=== PATIENT | female | born 1970 | race Caucasian/White ===

== ENCOUNTER → 2018-09-16 08:44 | Emergency (ER) | payer BC ==
[~2018-09-16 08:44] MED LIST: NS 0.9% 1000 ML* 1,000 ML IV ONE
--- NOTE | 2018-09-16 09:31 | ED ---
Back Pain - HPI Summary HPI Summary: A 48 y/o female accompanied by a friend presents to ED c/o severe back pain. Currently, the patient is still experiencing back pain reaching 3/10 in severity. As per triage, "history of breast CA, relapsed. now here with severe lower back pain. states she can feel a small lump in back. denies trauma/injury/ heavy lifting". According to the patient, she has been experiencing "pretty severe" back pain since yesterday. She noted that her back pain feels like a similar back pain when she lifts something heavy, but the pain has been getting worse to the point where it is difficult to stand and sit up. She noted that she is worried that her breast cancer is involving her spine. She was diagnosed with a relapse last week. Additionally, she stated that she constantly palpates herself and did not feel a lump or mass, but felt one today as she was massaging her back earlier. She was diagnosed with breast cancer in June 2017. She went through a mastectomy and chemotherapy. She received the results of a biopsy last and found out on Tuesday night that she relapsed. She is currently not under any therapy. She has a PET CT on Tuesday scheduled and just had a brain MRI. Patient would like ED MD to call Dr. Rankin. 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 - History of Current Complaint Chief Complaint: EDBackInjuryPain Stated Complaint: BACK PAIN Time Seen by Provider: 09/16/18 08:55 Hx Obtained From: Patient Onset/Duration: Sudden Onset, Lasting Days, Still Present, Worse Since Onset/Duration: Started Days Ago Timing: Constant Severity Initially: Moderate Severity Currently: Moderate Pain Intensity: 3 Pain Scale Used: 0-10 Numeric Character: Aching Alleviating Symptom(s): Nothing Associated Signs And Symptoms: Positive: Negative - Allergies/Home Medications Allergies/Adverse Reactions: Allergies Allergy/AdvReac Type Severity Reaction Status Date / Time No Known Allergies Allergy Verified 09/16/18 08:50 Home Medications: Home Medications Alendronate Sodium 70 mg PO WEEKLY 09/16/18 [History Confirmed 09/16/18] Anastrozole (NF) [Arimidex (NF)] 1 mg PO DAILY 09/16/18 [History Confirmed 09/16] Calcium Carbonate [Calcium] 500 mg PO DAILY 09/16/18 [History Confirmed 09/16/18 ] Cholecalciferol (Vitamin D3) [Vitamin D-3] 2,000 unit PO DAILY 09/16/18 [ History Confirmed 09/16/18] Fluticasone NASAL SPRAY 50MCG* [Flonase NASAL SPRAY 50MCG*] 2 spray BOTH NARES DAILY 09/16/18 [History Confirmed 09/16/18] Multivitamins/Minerals TAB* [Theragran/minerals TAB*] 1 tab PO DAILY 09/16/18 [ History Confirmed 09/16/18] PMH/Surg Hx/FS Hx/Imm Hx Endocrine/Hematology History: Denies: Hx Diabetes Cardiovascular History: Denies: Hx Hypertension, Hx Pacemaker/ICD History: Denies: Hx Renal Disease Sensory History: Denies: Hx Hearing Aid Psychiatric History: Denies: Hx Panic Disorder - Cancer History Cancer Type, Location and Year: R t BREAST CANCER Hx Chemotherapy: Yes Hx Radiation Therapy: Yes - Surgical History Surgery Procedure, Year, and Place: CARDIAC CATH (NO STENTS) AND ABLATION. 2017 Rt MASTECTOMY WITH AXILLA DISSECTION. SINUS Infectious Disease History: No Infectious Disease History: Denies: Traveled Outside the [place] in Last 30 Days - Family History Known Family History: Positive: Other - BREAST CANCER, HIGH CHOLESTEROL, AND BLADDER CANCER - Social History Alcohol Use: Daily - GLASS OF WINE Hx Substance Use: No Hx Tobacco Use: No Smoking Status (MU): Never Smoked Tobacco Review of Systems Negative: Fever Positive: Other - POSITIVE: Back pain All Other Systems Reviewed And Are Negative: Yes Physical Exam - Summary Physical Exam Summary: GENERAL: Patient is a well-developed and nourished female who is lying comfortable in the stretcher. Patient is not in any acute respiratory distress. HEAD AND FACE: Normocephalic EYES: PERRLA, EOMI x 2. EARS: Hearing grossly intact. MOUTH: Oropharynx within normal limits. NECK: Supple, trachea is midline, no adenopathy, no JVD, no carotid bruit. CHEST: Symmetric, no tenderness at palpation LUNGS: Clear to auscultation bilaterally. No wheezing or crackles. CVS: Regular rate and rhythm, S1 and S2 present, no murmurs or gallops appreciated. ABDOMEN: Soft, non-tender. Bowel sounds are normal. No abdominal abnormal pulsations. EXTREMITIES: Full ROM in all major joints, no edema, no cyanosis or clubbing. NEURO: Alert and oriented x 3. No acute neurological deficits. Speech is normal and follows commands. Back: Tender to palpation in lumbar spine. 5/5 motor of bilateral lower extremities. NV intact. SKIN: Dry and warm Neuro exam extended: Cranial nerves II-XII grossly intact, no dysmetria finger to nose, nml heel to quiñones Triage Information Reviewed: Yes Vital Signs On Initial Exam: Initial Vitals Temp Pulse Resp BP Pulse Ox 98.1 F 107 16 119/89 99 09/16/18 08:46 09/16/18 08:46 09/16/18 08:46 09/16/18 08:46 09/16/18 08:46 Vital Signs Reviewed: Yes Diagnostics - Vital Signs Vital Signs Temp Pulse Resp BP Pulse Ox 09/16/18 08:46 98.1 F 107 16 119/89 99 - Laboratory Result Diagrams: 09/16/18 09:29 09/16/18 09:29 Lab Statement: Any lab studies that have been ordered have been reviewed, and results considered in the medical decision making process. - Additional Comments Diagnostic Additional Comments: LUMBAR SPINE MRI: IMPRESSION: 1. Well-circumscribed medullary lesions in the T12 and L1 vertebral bodies have benign imaging characteristics favoring a benign etiology such as atypical hemangiomas. If there exists a high clinical suspicion for bony metastases further characterization can be made with contrast-enhanced imaging. 2. Degenerative disc disease at L4/L5 and L5/S1 causing left worse than right neural foraminal stenosis and mild central canal stenosis at L4/L5. 3. Fluid intensity lesions in the sacral canal and immediately anterior to the right S2/S3 sacrum exhibit benign imaging characteristics favoring Tarlov cysts. 4. Small to moderate pleural effusion. THORACIC SPINE MRI: IMPRESSION: 1. Well-circumscribed medullary lesions in the T12 and L1 vertebral bodies have benign imaging characteristics favoring a benign etiology such as atypical hemangiomas. If there exists a high clinical suspicion for bony metastases further characterization can be made with contrast-enhanced imaging. 2. Degenerative disc disease at L4/L5 and L5/S1 causing left worse than right neural foraminal stenosis and mild central canal stenosis at L4/L5. 3. Fluid intensity lesions in the sacral canal and immediately anterior to the right S2/S3 sacrum exhibit benign imaging characteristics favoring Tarlov cysts. 4. Small to moderate pleural effusion. Back Pain Course/Dx - Course Course Of Treatment: A 48 y/o female accompanied by a friend presents to ED c/o severe back pain. Currently, the patient is still experiencing back pain reaching 3/10 in severity. According to the patient, she has been experiencing "pretty severe" back pain since yesterday. She noted that her back pain feels like a similar back pain when she lifts something heavy, but the pain has been getting worse to the point where it is difficult to stand and sit up. She noted that she is worried that her breast cancer is involving her spine. She was diagnosed with a relapse last week. Additionally, she stated that she constantly palpates herself and did not feel a lump or mass, but felt one today as she was massaging her back earlier. She was diagnosed with breast cancer in June 2017. She went through a mastectomy and chemotherapy. She received the results of a biopsy last and found out on Tuesday night that she relapsed. She is currently not under any therapy. She has a PET CT on Tuesday scheduled and just had a brain MRI. Patient would like ED MD to call Dr. Rankin. 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 Physical examination revealed tenderness to palpation in lumbar spine. 5/5 motor. NV intact. A Thoracic Lumbar Spine MRI revealed 1. Well-circumscribed medullary lesions in the T12 and L1 vertebral bodies have benign imaging characteristics favoring a benign etiology such as atypical hemangiomas. If there exists a high clinical suspicion for bony metastases further characterization can be made with contrast-enhanced imaging. 2. Degenerative disc disease at L4/L5 and L5/S1 causing left worse than right neural foraminal stenosis and mild central canal stenosis at L4/L5. 3. Fluid intensity lesions in the sacral canal and immediately anterior to the right S2/S3 sacrum exhibit benign imaging characteristics favoring Tarlov cysts. 4. Small to moderate pleural effusion. A Lumbar Spine MRI revealed 1. Well-circumscribed medullary lesions in the T12 and L1 vertebral bodies have benign. imaging characteristics favoring a benign etiology such as atypical hemangiomas. If there exists a high clinical suspicion for bony metastases further characterization can be made with contrast-enhanced imaging. 2. Degenerative disc disease at L4/L5 and L5/S1 causing left worse than right neural foraminal stenosis and mild central canal stenosis at L4/L5. 3. Fluid intensity lesions in the sacral canal and immediately anterior to the right S2/S3 sacrum exhibit benign imaging characteristics favoring Tarlov cysts. 4. Small to moderate pleural effusion. Hematology and urinalysis was done. Labs were all within normal limits. In the ED room, the patient recieved IV fluids. Patient care was discussed with radiologist, Dr. Payne, who authorized MRI. Patient will be discharged with a diagnosis of degenerative disc disease and benign tumor of spinal hemangioma. Patient is to follow up with oncology in 1-3 days. Patient is to return to ED for any new or worseing symptoms. Patient is agreeable with this plan. - Diagnoses Provider Diagnoses: Degenerative disc disease, Benign tumor of spinal meningioma - Provider Notifications Discussed Care Of Patient With: Darrell Payne Time Discussed With Above Provider: 09:10 Instructed by Provider To: Other - AUTHORIZED MRI. Discharge - Sign-Out/Discharge Documenting (check all that apply): Patient Departure - DISCHARGE - Discharge Plan Condition: Stable Disposition: HOME Patient Education Materials: Degenerative Disc Disease (ED) Referrals: Mao Nahtan MD [Medical Doctor] - 3 Days Additional Instructions: FOLLOW UP WITH ONCOLOGY IN 1-3 DAYS. RETURN TO ED FOR ANY NEW OR WORSENING SYMPTOMS. - Billing Disposition and Condition Condition: STABLE Disposition: Home - Attestation Statements Document Initiated by Scribe: Yes Documenting Scribe: Alex Damon Provider For Whom Zachariah is Documenting (Include Credential): Obi Ruvalcaba MD Scribe Attestation: Alex Lanza scribed for Obi Ruvalcaba MD on 09/16/18 at 1814. Scribe Documentation Reviewed: Yes Provider Attestation: The documentation as recorded by the Alex shelton accurately reflects the service I personally performed and the decisions made by , Obi Ruvalcaba MD Status of Scribe Document: Viewed
[2018-09-16 09:42] LABS: ABS Basophils 0 10^3/ul (0-0.2); ABS Eosinophils 0.1 10^3/ul (0-0.6); ABS Lymphocytes 0.4 10^3/ul (1.0-4.8); ABS Monocytes 0.4 10^3/ul (0-0.8); ABS Neutrophils 3.4 10^3/ul (1.5-7.7); ABS Nucleated RBC 0 10^3/ul; Eosinophil % 1.4 %; Hematocrit 39 % (35-47); Hemoglobin 13.2 g/dl (12.0-16.0); Lymphocyte % 9.1 %; Mean Corpuscular HGB Conc 34 g/dl (31-36); Mean Corpuscular Hemoglobin 33 pg (27-31); Mean Corpuscular Volume 99 fL (80-97); Mean Platelet Volume 7.5 fL (7.4-10.4); Nucleated Red Blood Cells % 0.1; Platelet Count 197 10^3/ul (150-450); Red Blood Count 3.94 10^6/ul (4.00-5.40); Red Cell Distribution Width 13 % (10.5-15); White Blood Count 4.2 10^3/ul (3.5-10.8)
[2018-09-16 10:00] LABS: Albumin 5.1 g/dL (3.2-5.2); Albumin/Globulin Ratio 1.6 (1-3); BUN/Creatinine Ratio 22.7 (8-20); CRP High Sensitivity 10.63 mg/L (<2.00); EGFR Non-African American 94.8 (>60); Globulin 3.2 g/dL (2-4); Total Bilirubin 0.8 mg/dL (0.2-1.0); Total Protein 8.3 g/dL (6.4-8.9)
[2018-09-16 10:41] LABS: Urine Appearance Clear; Urine Bilirubin Negative (Negative); Urine Blood Negative (Negative); Urine Color Yellow; Urine Glucose Negative (Negative); Urine Ketones Trace (Negative); Urine Nitrite Negative (Negative); Urine Protein Negative (Negative); Urine Specific Gravity 1.024 (1.010-1.030); Urine Urobilinogen Negative (Negative)
--- NOTE | 2018-09-16 12:13 | PN ---
Progress Note - Progress Note Date of Service: 09/16/18 SOAP: Subjective: []Several days of progressive back pain, Lumbar to sacrum. She has no focal neuralgic symptoms. Has to stand, to much pain to be sitting. This am felt nodule on lower back, right side. She is not on any medication for pain. Unrelated, MRI brain this am with IVC negative, PET/CT planned for tomorrow morning. PMHx: Aggressive triple negative BC with progression through multiple chemotherapy regimens including anthracycline, taxane, Xeloda. Currently planning clinical trial through [facility] and has follow up planned for next week. Objective: [] Vital Signs Temp Pulse Resp BP Pulse Ox 98.1 F 107 16 119/89 99 09/16/18 08:46 09/16/18 08:46 09/16/18 08:46 09/16/18 08:46 09/16/18 08:46 HEENT - neg Chest - chest wall recurrence on right axillary LN on left. She has no point tenderness, 2 cm, mobile, soft nodule on right, adj to lumbar spine, no clear muscle spasm. Assessment: []48 yo aggressive breast cancer, currently progressing. Progressive back pain for 2 days in setting of planned re-staging studies. Plan: []1. Given gadolinium this am for head CT. Recommend non contrast MRI of LS spine. Discussed low but real risk of repeat gadolinium exposure. Will be able to see major lesions, in combination with PET tomorrow, more subtle lesions. 2. Can try Tylenol for pain to start. 3. Will be in touch over the weekend and after MRI done.
[2018-09-16 18:16] VITALS: BP 110/71
== END | disposition home or self-care (01) ==
LOC: ED 08:44
DX: M51.37 Other intervertebral disc degeneration, lumbosacral region (principal); D32.1 Benign neoplasm of spinal meninges; J90 Pleural effusion, not elsewhere classified; C50.919 Malignant neoplasm of unspecified site of unspecified female breast
CPT/HCPCS: 36415; 72146; 72148; 80053; 81003; 85025; 86141; 96360; 96361; 99283; J1642